=== PATIENT | female | born 1960 | race Caucasian/White ===

== ENCOUNTER 2018-03-14 22:51 | Emergency (ER) | payer MEDICARE, MEDICAID ==
--- NOTE | 2018-03-14 22:51 | NUR ---
TAHIR RA; HERE FOR "FOUND SEATED BY [facility]; BY STANDER CALLED [employer]. SHIVANI CALLED 911 BECAUSE PT SOULDNT REMEMBER HER LAST NAME". UPON TRIAGE PT ABLE TO REMEMBER HER LAST NAME AND WELL SSN. REFUSES TO BE SEEN BY ER MD MULTIPLE TIMES. DENIES SI/HI/MEDICAL SX'S OR WANTING ANY HELP FORM THE HOSPTAL". THIS WAS EVIDENCED BY RA PERSONNEL. PT STATES "I WANNA GO"
== END 2018-03-14 23:37 | disposition left against medical advice (07) ==
LOC: EDBD 22:54 → ER 22:54
DX: F41.9 Anxiety disorder, unspecified (principal); Z53.21 Procedure and treatment not carried out due to patient leaving prior to being seen by health care provider

== ENCOUNTER 2018-03-15 08:17 | Emergency (ER) | payer MEDICAID, MEDICARE ==
[~2018-03-15] VITALS: Ht 165.1 cm; Wt 56.7 kg
--- NOTE | 2018-03-15 08:22 | NUR ---
PATIENT WALKED INTO ER NO VERBALIZED COMPLAINTS. WHEN ASKED WHY SHE IS HERE STARTS TO CRY AND STATES "I DONT KNOW WHERE I AM OR WHY I AM HERE" DISORGANIZED SENTENCES JUMPING FROM ONE THOUGHT TO ANOTHER. NO S/S SOB, DIFFICULTY BREATHING AND DENIES PAIN. NO S/S TRAUMA. VS STABLE. WILL MONITOR
--- NOTE | 2018-03-15 08:35 | NUR ---
dr estrada at bedside for eval
--- NOTE | 2018-03-15 08:37 | NUR ---
mary sample collected per dr mercer
[2018-03-15 09:15] LABS: BASOPHILS % (AUTO) 0.4 % (0.0-2.0); EOSINOPHILS % (AUTO) 1.8 % (0.0-6.0); HEMATOCRIT 43 % (33-45); HEMOGLOBIN 13.4 g/dL (11.5-14.8); LYMPHOCYTES # (AUTO) 0.4 /CMM (0.8-4.8); LYMPHOCYTES % (AUTO) 12.4 % (20.0-44.0); MEAN CORPUSCULAR HEMOGLOBIN 28 PG (26.0-33.0); MEAN CORPUSCULAR HGB CONC 32 g/dl (31.0-36.0); MEAN CORPUSCULAR VOLUME 89 fL (82-100); MONOCYTES # (AUTO) 0.2 /CMM (0.1-1.30); MONOCYTES % (AUTO) 6.2 % (2.0-12.0); NEUTROPHILS # (AUTO) 2.5 /CMM (1.8-8.9); NEUTROPHILS % (AUTO) 79.2 % (43.0-81.0); PLATELET COUNT (AUTO) 209 /CMM (150-450); RDW COEFFICIENT OF VARIATION 12.4 (11.5-15.0); RED BLOOD CELL COUNT(AUTO) 4.79 MIL/uL (4.0-5.2); WHITE BLOOD COUNT (AUTO) 3.2 K/uL (4.3-11.0)
[2018-03-15 09:25] LABS: CALCIUM, SERUM 8.7 mg/dL (8.5-10.1); CARBON DIOXIDE 28 mmol/L (21-32); CHLORIDE 104 mmol/L (98-107); CREATININE 0.6 mg/dL (0.6-1.3); GLUCOSE 83 mg/dL (74-106); SODIUM SERUM 138 mmol/L (136-145); UREA NITROGEN, BLOOD 16 mg/dL (7-18)
[2018-03-15 09:31] LABS: ALANINE AMINOTRANSFERASE 24 U/L (12-78); ALBUMIN 3.2 g/dL (3.4-5.0); ALKALINE PHOSPHATASE 110 U/L (46-116); ASPARTATE AMINOTRANSFERASE 20 U/L (15-37); BILIRUBIN,TOTAL 0.2 mg/dL (0.2-1.0); SALICYLATE 1.7 mg/dL (2.8-20.0)
[2018-03-15 09:32] LABS: ACETAMINOPHEN 0 ug/ml (10-30); ALCOHOL, BLOOD < 3 mg/dL (0-0)
--- NOTE | 2018-03-15 09:33 | NUR ---
PATIENT WENT TO CT WITH TECH
[2018-03-15 09:38] LABS: APPEARANCE,URINE CLEAR (CLEAR); BILIRUBIN,URINE NEGATIVE (NEGATIVE); BLOOD, URINE 1+ Ery/uL (NEGATIVE); COLOR,URINE DARK YELLOW (YELLOW); KETONES,URINE NEGATIVE (NEGATIVE); LEUKOCYTE ESTERASE ,URINE TRACE (NEGATIVE); NITRITE, URINE NEGATIVE (NEGATIVE); PH,URINE 6.5 (5.0-8.0); PROTEIN,URINE 2+ mg/dl (NEGATIVE); UGLUCOSE NEGATIVE (NEGATIVE)
[2018-03-15 09:41] LABS: BACTERIA,URINE Few /HPF (None Seen); SQUAMOUS EPITHELIAL CELL,UR Few /HPF (None Seen); WBC,URINE 51-80 /HPF (0-3)
[2018-03-15 09:42] LABS: MUCUS,URINE Few /LPF (None Seen)
--- NOTE | 2018-03-15 10:22 | NUR ---
[facility] CALLED FOR PSYCH EVAL PER DR STREETER
--- NOTE | 2018-03-15 11:40 | NUR ---
RED RAOW AT BEDSIDE FOR PSYCH EVALUATION.
--- NOTE | 2018-03-15 12:02 | NUR ---
PT WAS GIVEN HOUSING REFERRALS BY [facility]. PT WAS GIVEN A SCRUB PANTS AND SOME CLOTHES.
--- NOTE | 2018-03-15 12:09 | NUR ---
Patient discharged to home in stable condition. Written and verbal after care instructions given. Patient verbalizes understanding of instruction.
[2018-03-15 12:10] VITALS: BP 137/88
== END 2018-03-15 12:12 | disposition home or self-care (01) ==
LOC: ER 08:19
DX: R41.0 Disorientation, unspecified (principal); Z59.0 Homelessness; R45.850 Homicidal ideations; F17.200 Nicotine dependence, unspecified, uncomplicated; F41.9 Anxiety disorder, unspecified; R45.1 Restlessness and agitation; F15.10 Other stimulant abuse, uncomplicated
CPT/HCPCS: 36415; 70450; 71045; 80048; 80076; 80305; 80329; 81001; 85025; 87086; 99285; A4606; G0480 ×2; Z7610; 81000-TC